=== PATIENT | male | born 1990 | race American Indian/Alaskan Native ===

== ENCOUNTER 2018-12-29 23:36 | Emergency (ER) | payer OTHER ==
[2018-12-30 00:14] VITALS: BP 129/86
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
--- NOTE | 2018-12-30 03:48 | XRay Report ---
PROCEDURE: XR RIBS UNILAT 2V LT TECHNIQUE: A PA view the chest was obtained along with 3 views of the left ribs. HISTORY: left sided rib pain COMPARISONS: None FINDINGS: There is no evidence of acute displaced left-sided rib fracture. The lungs are clear. The heart size is normal. There is no evidence of pleural effusion or pneumothorax. IMPRESSION: No acute left-sided rib fracture. No acute process in the chest.. This document is electronically signed by Jesse Broderick MD., December 30 2018 03:46:23 AM ET
== END 2018-12-30 04:35 | disposition home or self-care (01) ==
LOC: ED 23:36
DX: S46.912A Strain of unspecified muscle, fascia and tendon at shoulder and upper arm level, left arm, initial encounter (principal); M94.0 Chondrocostal junction syndrome [Tietze]; V49.49XA Driver injured in collision with other motor vehicles in traffic accident, initial encounter; Y93.89 Activity, other specified; Y92.89 Other specified places as the place of occurrence of the external cause; Y99.9 Unspecified external cause status